=== PATIENT | female | born 1975 | race Caucasian/White ===

== ENCOUNTER 2016-06-18 16:04 | Emergency (ER) | payer SELFPAY ==
[~2016-06-18] VITALS: Ht 165.1 cm; Wt 105.0 kg
[~2016-06-18 16:04] MED LIST: IBUP600 PO; LORTA5 PO; OMEP20TA39 PO
[2016-06-18 16:06] VITALS: BP 168/72; PULSE 86; RESP 14; TEMP 97.9; O2SAT 99
--- NOTE | 2016-06-18 16:41 | PD ---
HPI Chief Complaint: Skin Problem Time Seen by Provider: 16:40 Travel History International Travel<30 days: No Contact w/Intl Traveler<30days: No Traveled to known affect area: No History of Present Illness HPI 40-year-old female presents the emergency department with erythema and swelling over the left dorsal foot after receiving a tattoo the area 2 days ago. Patient is up-to-date on her tetanus as of last October. Patient denies fever, chills, or other symptoms. She has no history of MRSA in the past. She is allergic to Toradol. Her pain is 6/10. PFSH Past Medical History Arthritis: No Asthma: No Anxiety: Yes Heart Rhythm Problems: No Cardiac Catheterization: No Cardiovascular Problems: No High Cholesterol: No Chest Pain: No Congestive Heart Failure: No COPD: No Cerebrovascular Accident: No Diabetes: No Diminished Hearing: No Deep Vein Thrombosis: Yes Endocrine: No Gastrointestinal Disorders: Yes (CELIAC DISEASE) GERD: Yes Glaucoma: No Genitourinary: No Headaches: No Hepatitis: Yes (HEP C) Hiatal Hernia: No Hypertension: No Kidney Stones: No Musculoskeletal: No Neurologic: No Reproductive: No Respiratory: No Immunizations Current: Yes Myocardial Infarction: No Renal Failure: No Seizures: No Sleep Apnea: No Thyroid Disease: No Ulcer: Yes ?: Not Menopausal: No : 2 Para: 2 Miscarriage: 0 Ovarian Cysts: Yes (RIGHT ) Tubal Ligation: Yes Past Surgical History AICD: No Cardiac Surgery: No Cholecystectomy: Yes Coronary Artery Bypass Graft: No Ear Surgery: Yes Endocrine Surgery: No Eye Surgery: No Genitourinary Surgery: Yes (COLONOSCOPY 1995) Gynecologic Surgery: Yes (TUBAL LIGATION) Hysterectomy: Yes Oral Surgery: No Pacemaker: No Thoracic Surgery: No Tympanostomy Tube: Yes Other Surgery: Yes (choleystestectomy) Social History Alcohol Use: Yes (SOCIALLY) Tobacco Use: No Substance Use: No Allergies-Medications (Allergen,Severity, Reaction): Coded Allergies: Toradol (Verified Adverse Reaction, Severe, DIAPHORETIC, N/V, 06/18/16) Reported Meds & Prescriptions Reported Meds & Active Scripts Active Review of Systems Except as stated in HPI: all other systems reviewed are Neg General / Constitutional: No: Fever Eyes: No: Visual changes HENT: No: Headaches Cardiovascular: No: Chest Pain or Discomfort Respiratory: No: Shortness of Breath Gastrointestinal: No: Abdominal Pain Genitourinary: No: Dysuria Musculoskeletal: Positive: Myalgias, No: Pain Skin: Positive Lesions (see history present illness.), No Rash Neurologic: No: Weakness Psychiatric: No: Depression Endocrine: No: Polydipsia Hematologic/Lymphatic: No: Easy Bruising Physical Exam Narrative GENERAL: Patient is in mild to moderate distress. SKIN: Warm and dry. Patient has normal color. Normal turgor. Patient has a new tattoo to the left dorsal lateral foot with some follow with her dragonfly. This area is mildly erythematous with swelling to the dorsal foot without significant signs of drainage, or lymphangitis. Left Toes are normal in appearance. The left ankle is normal in appearance. HEAD: Atraumatic. Normocephalic. EYES: Pupils equal and round. No scleral icterus. No injection or drainage. ENT: No nasal bleeding or discharge. Mucous membranes pink and moist. Pharynx is normal. NECK: Trachea midline. Supple nontender. CARDIOVASCULAR: Regular rate and rhythm. RESPIRATORY: No accessory muscle use. Clear to auscultation. Breath sounds equal bilaterally. MUSCULOSKELETAL: Extremities without clubbing, cyanosis, or edema. No obvious deformities. SEE SKIN NEUROLOGICAL: Awake and alert. No obvious cranial nerve deficits. Motor grossly within normal limits. Five out of 5 muscle strength in the arms and legs. Normal speech. PSYCHIATRIC: Appropriate mood and affect; insight and judgment normal. Data Data Last Documented VS Vital Signs Date Time Temp Pulse Resp B/P Pulse Ox O2 Delivery O2 Flow Rate FiO2 06/18/16 16:06 97.9 86 14 168/72 99 Room Air Orders Clindamycin Inj (Cleocin Inj) (06/18/16 16:45) [facility] Medical Decision Making Medical Screen Exam Complete: Yes Emergency Medical Condition: Yes Differential Diagnosis Cellulitis left foot. Infected tattoo. Early cellulitis. Possible MRSA. Narrative Course Patient is medically stable at time of exam. There is no real drainage to culture. Patient is given 600 mg clindamycin IM. Patient was discharged home on Bactrim DS twice a day 7 days. Patient is given topical Bactroban to be applied to the area twice daily after cleansing with water and soap. Patient is to keep the area elevated and take ibuprofen as needed for pain. Patient is given a note for work. Patient should follow with her primary care physician or return to emergency department worsening symptoms as needed. Diagnosis Primary Impression: Cellulitis of left foot excluding toes Referrals: Primary Care Physician Patient Instructions: Cellulitis (ED), General Instructions Departure Forms: Work Release Enter return to work date: Jun 20, 2016 Additional Instructions: Patient is given 600 mg clindamycin IM. Patient was discharged home on Bactrim DS twice a day 7 days. Patient is given topical Bactroban to be applied to the area twice daily after cleansing with water and soap. Patient is to keep the area elevated and take ibuprofen as needed for pain. Patient is given a note for work. Patient should follow with her primary care physician or return to emergency department worsening symptoms as needed. Med/Other Pt SpecificInfo: Prescription(s) given Disposition: DISCHARGE HOME Condition: Stable Rodney Dlaey Jun 18, 2016 16:41
[2016-06-18] MEDS ORDERED: CLINDAMYCIN PHOS 600 MG/4 ML VIAL IM ONE (16:45)
[2016-06-18] MEDS ORDERED: BACT800T5 PO (17:04)
[2016-06-18] MEDS ORDERED: MUPI2%T TOPICAL (17:04)
== END 2016-06-18 17:29 | disposition home or self-care (01) ==
LOC: NEPB 16:04
DX: L03.116 Cellulitis of left lower limb (principal)
CPT/HCPCS: 96372

== ENCOUNTER 2016-11-29 21:50 | Emergency (ER) | payer OTHER ==
[~2016-11-29] VITALS: Ht 165.1 cm; Wt 111.7 kg
[~2016-11-29 21:50] MED LIST changes: +BACT800T5 PO; -IBUP600 PO; -LORTA5 PO; +MUPI2%T TOPICAL; -OMEP20TA39 PO
[2016-11-29 21:55] VITALS: BP 141/90; PULSE 79; RESP 20; TEMP 98.2; O2SAT 100
[2016-11-29] MEDS ORDERED: MORPHINE SULFATE 4 MG/ML INJ IV PUSH ONE (22:15)
[2016-11-29] MEDS ORDERED: ONDANSETRON HCL 4 MG/2 ML VIAL IVP ONE (22:15)
--- NOTE | 2016-11-29 22:24 | PD ---
HPI Chief Complaint: Abdominal Pain Time Seen by Provider: 22:03 Travel History International Travel<30 days: No Contact w/Intl Traveler<30days: No Traveled to known affect area: No History of Present Illness HPI 41-year-old female complains of low abdominal pain and vaginal bleeding. Patient has history of enlarged uterus. Patient states that she has recurrent low abdominal pain with irregular vaginal bleeding. Patient status post hysterectomy in [place] [address] Garber. Patient states that she has intermittent abdominal pain and vaginal bleeding since then even after surgery. Patient states that the pain is worse for the past 3 days. Patient states that she has intermittent nausea vomiting with the pain. Patient states that the pain in cramping pain and sharp pain localized to lower abdomen. She denies any pain radiation. Patient denies any fever chills. Patient denies any dysuria or frequency. Patient denies any back pain. Patient was seen by personal physician and awaiting appointment with another certified midwife. On a scale of 1-10 the pain is a 9. Patient status post cholecystectomy also. PFSH Past Medical History Arthritis: No Asthma: No Anxiety: Yes Heart Rhythm Problems: No Cardiac Catheterization: No Cardiovascular Problems: No High Cholesterol: No Chest Pain: No Congestive Heart Failure: No COPD: No Cerebrovascular Accident: No Diabetes: No Diminished Hearing: No Deep Vein Thrombosis: Yes Endocrine: No Gastrointestinal Disorders: Yes (CELIAC DISEASE) GERD: Yes Glaucoma: No Genitourinary: No Headaches: No Hepatitis: Yes (HEP C) Hiatal Hernia: No Hypertension: No Kidney Stones: No Musculoskeletal: No Neurologic: No Reproductive: No Respiratory: No Immunizations Current: Yes Myocardial Infarction: No Renal Failure: No Seizures: No Sleep Apnea: No Thyroid Disease: No Ulcer: Yes ?: Not Menopausal: No : 2 Para: 2 Miscarriage: 0 Ovarian Cysts: Yes (RIGHT ) Tubal Ligation: Yes Past Surgical History AICD: No Cardiac Surgery: No Cholecystectomy: Yes Coronary Artery Bypass Graft: No Ear Surgery: Yes Endocrine Surgery: No Eye Surgery: No Genitourinary Surgery: Yes (COLONOSCOPY 1995) Gynecologic Surgery: Yes (TUBAL LIGATION) Hysterectomy: Yes (PARTIAL) Oral Surgery: No Pacemaker: No Thoracic Surgery: No Tympanostomy Tube: Yes Other Surgery: Yes (choleystestectomy) Social History Alcohol Use: Yes (SOCIALLY) Tobacco Use: No Substance Use: No Allergies-Medications (Allergen,Severity, Reaction): Coded Allergies: Toradol (Verified Adverse Reaction, Severe, DIAPHORETIC, N/V, 11/29/16) Reported Meds & Prescriptions Reported Meds & Active Scripts Active Reported Omeprazole 40 Mg Cap 80 Mg PO BID Methimazole 10 Mg Tab 10 Mg PO TID Metoprolol Tartrate 25 Mg Tab 12.5 Mg PO BID Review of Systems General / Constitutional: No: Fever Eyes: No: Visual changes HENT: No: Headaches Cardiovascular: No: Chest Pain or Discomfort Respiratory: No: Shortness of Breath Gastrointestinal: Positive: Nausea, Vomiting, Abdominal Pain Genitourinary: No: Dysuria Musculoskeletal: No: Pain Skin: No Rash Neurologic: No: Weakness Psychiatric: No: Depression Endocrine: No: Polydipsia Hematologic/Lymphatic: No: Easy Bruising Physical Exam Narrative GENERAL: Well-nourished, well-developed patient. SKIN: Focused skin assessment warm/dry. HEAD: Normocephalic. EYES: No scleral icterus. No injection or drainage. NECK: Supple, trachea midline. No JVD or lymphadenopathy. CARDIOVASCULAR: Regular rate and rhythm without murmurs, gallops, or rubs. RESPIRATORY: Breath sounds equal bilaterally. No accessory muscle use. GASTROINTESTINAL: Abdomen soft, nondistended. Patient has mild to moderate tenderness on palpation lower abdomen. No rebound tenderness. No mass. MUSCULOSKELETAL: No cyanosis, or edema. BACK: Nontender without obvious deformity. No CVA tenderness. DIRECTOR OF CODING exam: The cervix is present. Patient has a small amount a whitish discharge in the vaginal vault. Mild to moderate tenderness on palpation right adnexal area. No adnexal mass. Data Data Last Documented VS Vital Signs Date Time Temp Pulse Resp B/P Pulse Ox O2 Delivery O2 Flow Rate FiO2 11/29/16 21:55 98.2 79 20 141/90 100 Orders Complete Blood Count With Diff (11/29/16 22:12) Comprehensive Metabolic Panel (11/29/16 22:12) Prothrombin Time / Inr (Pt) (11/29/16 22:12) Act Partial Throm Time (Ptt) (11/29/16 22:12) Urinalysis - C+S If Indicated (11/29/16 22:12) Iv Access Insert/Monitor (11/29/16 22:12) Ecg Monitoring (11/29/16 22:12) Oximetry (11/29/16 22:12) Morphine Inj (Morphine Inj) (11/29/16 22:15) Ondansetron Inj (Zofran Inj) (11/29/16 22:15) Ct Abd/Pel W/O Iv Contrast (11/29/16 22:55) Urine Culture (11/29/16 22:35) Gc And Chlamydia Pcr (11/29/16 23:19) Wet Prep Profile (11/29/16 23:19) Morphine Inj (Morphine Inj) (11/29/16 23:30) Ondansetron Odt (Zofran Odt) (11/29/16 23:30) Labs Laboratory Tests Test 11/29/16 11/29/16 22:35 22:54 Urine Color YELLOW Urine Turbidity CLEAR Urine pH 5.5 Urine Specific Duck 1.018 Urine Protein NEG mg/dL Urine Glucose (UA) NEG mg/dL Urine Ketones NEG mg/dL Urine Occult Blood NEG Urine Nitrite NEG Urine Bilirubin NEG Urine Leukocyte Esterase NEG Urine RBC 0-3 /hpf Urine WBC 0-2 /hpf Urine Squamous Epithelial 0-5 /hpf Cells Urine Bacteria MOD /hpf Urine Mucus OCC /lpf Microscopic Urinalysis Comment CULTURE INDICATED Sodium Level 139 MEQ/L Potassium Level 3.6 MEQ/L Chloride Level 106 MEQ/L Carbon Dioxide Level 24.8 MEQ/L Anion Gap 8 MEQ/L Blood Urea Nitrogen 11 MG/DL Creatinine 0.65 MG/DL Estimat Glomerular Filtration 101 ML/MIN Rate Random Glucose 123 MG/DL Calcium Level 8.7 MG/DL Total Bilirubin 0.2 MG/DL Aspartate Amino Transf 24 U/L (AST/SGOT) Alanine Aminotransferase 28 U/L (ALT/SGPT) Alkaline Phosphatase 127 U/L Total Protein 7.5 GM/DL Albumin 3.4 GM/DL White Blood Count 8.1 TH/MM3 Red Blood Count 4.42 MIL/MM3 Hemoglobin 10.6 GM/DL Hematocrit 32.9 % Mean Corpuscular Volume 74.5 FL Mean Corpuscular Hemoglobin 24.0 PG Mean Corpuscular Hemoglobin 32.2 % Concent Red Cell Distribution Width 15.4 % Platelet Count 258 TH/MM3 Mean Platelet Volume 9.1 FL Neutrophils (%) (Auto) 53.1 % Lymphocytes (%) (Auto) 34.3 % Monocytes (%) (Auto) 8.8 % Eosinophils (%) (Auto) 2.0 % Basophils (%) (Auto) 1.8 % Neutrophils # (Auto) 4.3 TH/MM3 Lymphocytes # (Auto) 2.8 TH/MM3 Monocytes # (Auto) 0.7 TH/MM3 Eosinophils # (Auto) 0.2 TH/MM3 Basophils # (Auto) 0.1 TH/MM3 CBC Comment AUTO DIFF Prothrombin Time 10.7 SEC Prothromb Time International 1.0 RATIO Ratio Activated Partial 25.9 SEC Thromboplast Time MDM Medical Decision Making Medical Screen Exam Complete: Yes Emergency Medical Condition: Yes Interpretation(s) Last Impressions Abdomen/Pelvis CT 11/29/16 2255 Signed Impressions: Service Date/Time: Tuesday, November 29, 2016 22:52 - CONCLUSION: No acute finding is identified within the abdomen or pelvis on this noncontrast examination. Al Alonso MD 23:49 PM. CBC with hemoglobin 10.6 hematocrit 32.9. MCV 74.5. WBC 8.1 with normal differential. CMP within normal limit. UA is negative. Differential Diagnosis Differential diagnosis including UTI, pyelonephritis, nephrolithiasis, ovarian cyst, ovarian torsion, colitis Narrative Course 41-year-old female with low abdominal pain. Patient status post hysterectomy. Patient reported intermittent vaginal bleeding and low abdominal pain since February 2016 after the surgery. Diagnosis Primary Impression: Abdominal pain Qualified Code: R10.30 - Lower abdominal pain Patient Instructions: General Instructions Additional Instructions: Tramadol as needed for pain. Follow-up with certified midwife and GI specialist if persistent problem. Return if worse. Med/Other Pt SpecificInfo: Prescription(s) given Scripts Tramadol (Ultram)50 Mg Tab50 Mg PO Q6H PRN (PAIN) #30 TAB Prov:Jude Avila MD 11/29/16 Disposition: 01 DISCHARGE HOME Condition: Stable Jude Avila MD Nov 29, 2016 22:24
[2016-11-29 22:42] VITALS: BP 129/70; PULSE 90; RESP 17; O2SAT 100
[2016-11-29 23:02] LABS: AUTOMATED NEUTROPHIL # 4.3 TH/MM3 (1.8-7.7); BASOPHIL # 0.1 TH/MM3 (0-0.2); BASOPHIL % 1.8 % (0.0-2.0); EOSINOPHIL # 0.2 TH/MM3 (0-0.4); HEMATOCRIT 32.9 % (35.0-46.0); LYMPH % 34.3 % (9.0-44.0); LYMPHOCYTE # 2.8 TH/MM3 (1.0-4.8); MEAN CELL VOLUME 74.5 FL (80.0-100.0); MEAN CORPUSCULAR HGB CONC 32.2 % (32.0-36.0); MONO % 8.8 % (0.0-8.0); NEUT % 53.1 % (16.0-70.0); PLATELET COUNT 258 TH/MM3 (150-450); RED BLOOD COUNT 4.42 MIL/MM3 (4.00-5.30); RED CELL DISTRIBUTION WIDTH 15.4 % (11.6-17.2); WHITE BLOOD COUNT 8.1 TH/MM3 (4.0-11.0)
[2016-11-29] MEDS ORDERED: METO25TA3 PO (23:02)
[2016-11-29] MEDS ORDERED: METHI10 PO (23:02)
[2016-11-29] MEDS ORDERED: OMEP40CA2 PO (23:02)
[2016-11-29 23:03] LABS: BLOOD, URINE NEG (NEG); GLUCOSE,URINE NEG (NEG); KETONE, URINE NEG (NEG); NITRITE,URINE NEG (NEG); PH, URINE 5.5 (5.0-8.5)
[2016-11-29 23:14] LABS: CHLORIDE 106 MEQ/L (98-107); POTASSIUM 3.6 MEQ/L (3.5-5.1); SODIUM (NA) 139 MEQ/L (136-145)
[2016-11-29 23:15] LABS: URINE COLOR YELLOW (YELLW/STRAW)
[2016-11-29 23:16] LABS: MUCUS URINE OCC /lpf (OCC); SQUAMOUS EPITHELIAL CELL URINE 0-5 /hpf (0-5)
[2016-11-29 23:17] LABS: BACTERIA, URINE MOD /hpf; RBC, URINE 0-3 /hpf (0-3); WBC, URINE 0-2 /hpf (0-5)
[2016-11-29 23:18] LABS: ANION GAP 8 MEQ/L (5-15); BICARBONATE 24.8 MEQ/L (21.0-32.0); COMMENT (UR) CULTURE INDICATED; CULTURE IF INDICATED CULTURE INDICATED
[2016-11-29 23:19] LABS: BLOOD UREA NITROGEN 11 MG/DL (7-18)
[2016-11-29 23:20] LABS: APTT (PATIENT) 25.9 SEC (24.3-30.1); PROTHROMBIN TIME - PATIENT 10.7 SEC (9.8-11.6)
[2016-11-29 23:21] LABS: ALT (GPT) 28 U/L (10-53)
[2016-11-29 23:22] LABS: AST (GOT) 24 U/L (15-37); GLOMERULAR FILTRATION RATE 101 ML/MIN (>89)
[2016-11-29 23:23] LABS: TOTAL BILIRUBIN ADULT 0.2 MG/DL (0.2-1.0)
[2016-11-29 23:24] LABS: ALKALINE PHOSPHATASE 127 U/L (45-117)
--- NOTE | 2016-11-29 23:27 | RADRPT ---
EXAM DATE/TIME: 11/29/2016 22:52 [facility] COMPARISON: CT PULMONARY ANGIOGRAM, September 08, 2015, 20:34. INDICATIONS : Lower abdominal pain post hysterectomy in February 2016. Cramping for three days. ORAL CONTRAST: No oral contrast ingested. RADIATION DOSE: 22.26 CTDIvol (mGy) ; Patient body habitus MEDICAL HISTORY : Gastroesophageal reflux disease. Deep venous thrombosis. Celiac disease. SURGICAL HISTORY : Cholecystectomy. Hysterectomy. ENCOUNTER: Initial ACUITY: 7 - 11 months PAIN SCALE: 9/10 LOCATION: Bilateral lower quadrant TECHNIQUE: Volumetric scanning of the abdomen and pelvis was performed. Using automated exposure control and ad justment of the mA and/or kV according to patient size, radiation dose was kept as low as reasonably achievable to obtain optimal diagnostic quality images. DICOM format image data is available electro nically for review and comparison. FINDINGS: LOWER LUNGS: There is a subpleural 4 mm noncalcified pulmonary nodule in the right lower lobe. This nodule has bee n stable since September 2015, diagnostic of a benign process. Otherwise, the visualized lower lungs are cl ear. LIVER: Homogeneous density without lesion. There is no dilation of the biliary tree. There is been prior c holecystectomy clips in the gallbladder fossa. SPLEEN: Normal size without lesion. PANCREAS: Within normal limits. KIDNEYS: Normal in size and shape. There is no mass, stone, or hydronephrosis. ADRENAL GLANDS: Within normal limits. VASCULAR: There is no aortic aneurysm. BOWEL/MESENTERY: The stomach, small bowel, and colon demonstrate no acute abnormality. There is no free intraperitone al air or fluid. ABDOMINAL WALL: Within normal limits. RETROPERITONEUM: There is no lymphadenopathy. BLADDER: No wall thickening or mass. REPRODUCTIVE: No abnormality is identified. INGUINAL: There is no lymphadenopathy or hernia. MUSCULOSKELETAL: No acute finding is identified. CONCLUSION: No acute finding is identified within the abdomen or pelvis on this noncontrast examination. Al Alonso MD on November 29, 2016 at 23:23 Board Certified Radiologist. This report was verified electronically.
[2016-11-29] MEDS ORDERED: MORPHINE SULFATE 4 MG/ML INJ IM ONE (23:30)
[2016-11-29] MEDS ORDERED: ONDANSETRON ODT 4 MG TAB PO ONE (23:30)
[2016-11-29 23:32] LABS: HEMO FLAGS AUTO DIFF
[2016-11-29 23:48] VITALS: BP 102/60; PULSE 65; RESP 18; O2SAT 100
[2016-11-29 23:52] LABS: PLATELET ESTIMATE SMEAR NORMAL (NORMAL); PLATELET MORPHOLOGY NORMAL (NORMAL); SCAN/DIFF AUTO DIFF CONFIRMED
[2016-11-29] MEDS ORDERED: ULTR50TA5 PO (23:54)
[2016-11-30 07:44] LABS: CHLAMYDIA PCR NOT DETECTED (NOT DETECT); NEISSERIA PCR NOT DETECTED (NOT DETECT)
== END 2016-11-30 00:24 | disposition home or self-care (01) ==
LOC: PHED 21:50
DX: R10.30 Lower abdominal pain, unspecified (principal); N93.9 Abnormal uterine and vaginal bleeding, unspecified; R11.2 Nausea with vomiting, unspecified; Z86.59 Personal history of other mental and behavioral disorders; Z86.718 Personal history of other venous thrombosis and embolism; Z87.19 Personal history of other diseases of the digestive system
CPT/HCPCS: 74176; 80053; 81001; 85025; 85610; 85730; 87086; 87210; 87491; 87591; 96372; 99285; J2270

== ENCOUNTER 2017-03-08 12:26 | Emergency (ER) | payer OTHER ==
[~2017-03-08] VITALS: Ht 165.1 cm; Wt 110.0 kg
[~2017-03-08 12:26] MED LIST changes: +ALBUAER3 INH; -BACT800T5 PO; +BENZ100 PO; +METO25TA3 PO; -MUPI2%T TOPICAL; +OMEP40CA2 PO; +PRED20 PO; +ZITH500T PO
[2017-03-08 12:29] VITALS: BP 141/98; PULSE 18; PULSE 86; RESP 18; TEMP 97.9; O2SAT 100
--- NOTE | 2017-03-08 12:37 | PD ---
Physical Exam Date Seen by Provider: Mar 08, 2017 Time Seen by Provider: 12:34 Narrative 41-year-old white female presents to emergency Department with complaints of nausea, vomiting and abdominal pain. Symptoms have been present since this morning. He is symptoms are worse with movement. Associated nausea, vomiting and diarrhea. No fever or chills. No urinary symptoms. No vaginal complaints. Patient reports her pain at 10/10. Sharp and cramping. Vital signs reviewed. Pt. waiting for bed placement. Data Data Last Documented VS Vital Signs Date Time Temp Pulse Resp B/P (MAP) Pulse Ox O2 Delivery O2 Flow Rate FiO2 03/08/17 12:29 97.9 86 18 141/98 (112) 100 Room Air [facility] Medical Record Reviewed: No Supervised Visit with COTY: Rolo Chowdary Mar 08, 2017 12:37
[2017-03-08] MEDS ORDERED: SODIUM CHLOR 0.9% 1000 ML INJ 1,000 ML IV SCH (12:51)
--- NOTE | 2017-03-08 12:56 | PD ---
HPI Chief Complaint: Abdominal Pain Time Seen by Provider: 12:45 Travel History International Travel<30 days: No Contact w/Intl Traveler<30days: No Traveled to known affect area: No History of Present Illness HPI This patient was examined in the presence of a female nurse. 41-year-old female presents for evaluation of abdominal pain. She reports over the past 3 days she has had 3 episodes daily of loose stools. She reports some nausea and vomiting since yesterday evening. This morning she developed some abdominal pain. She describes as a sharp pain in the periumbilical several radiates into the lower quadrants of the abdomen. The pain is constant but worse with movement. She denies fevers or chills. She does endorse some pain in the right lower quadrant when she urinates. She denies vaginal bleeding or discharge, fevers or chills, flank pain, chest pain or shortness of breath. She reports a history of partial hysterectomy as well as cholecystectomy. She also reports a history of hepatitis C, celiac disease and Graves' disease. Her primary care physician is Dr. Kennedy. No other complaints. PFSH Past Medical History Arthritis: No Asthma: No Anxiety: Yes Heart Rhythm Problems: No Cardiac Catheterization: No Cardiovascular Problems: No High Cholesterol: No Chest Pain: No Congestive Heart Failure: No COPD: No Cerebrovascular Accident: No Diabetes: No Diminished Hearing: No Deep Vein Thrombosis: Yes Endocrine: No Gastrointestinal Disorders: Yes (CELIAC DISEASE) GERD: Yes Glaucoma: No Genitourinary: No Headaches: No Hepatitis: Yes (HEP C) Hiatal Hernia: No Hypertension: No Kidney Stones: No Musculoskeletal: No Neurologic: No Reproductive: No Respiratory: No Immunizations Current: Yes Myocardial Infarction: No Renal Failure: No Seizures: No Sleep Apnea: No Thyroid Disease: Yes (Hyperthyroid) Ulcer: Yes Tetanus Vaccination: < 5 Years Influenza Vaccination: Yes ?: Not Menopausal: No : 2 Para: 2 Miscarriage: 0 Ovarian Cysts: Yes (RIGHT ) Tubal Ligation: Yes Past Surgical History AICD: No Cardiac Surgery: No Cholecystectomy: Yes Coronary Artery Bypass Graft: No Ear Surgery: Yes Endocrine Surgery: No Eye Surgery: No Genitourinary Surgery: Yes (COLONOSCOPY 1995) Gynecologic Surgery: Yes (TUBAL LIGATION) Hysterectomy: Yes (partial) Oral Surgery: No Pacemaker: No Thoracic Surgery: No Tympanostomy Tube: Yes Other Surgery: Yes (choleystestectomy) Family History Family Myocardial Infarction: Yes (GRANDMOTHER IN HER 50S) Social History Alcohol Use: Yes (SOCIALLY) Tobacco Use: No Substance Use: No Allergies-Medications (Allergen,Severity, Reaction): Coded Allergies: ketorolac (Verified Adverse Reaction, Severe, DIAPHORETIC, N/V, 03/08/17) Reported Meds & Prescriptions Reported Meds & Active Scripts Active Zofran (Ondansetron HCl) 4 Mg Tab 4 Mg PO Q6HR PRN Bentyl (Dicyclomine HCl) 10 Mg Cap 10 Mg PO TID Proair Hfa 8.5 GM Inh (Albuterol Sulfate) 90 Mcg/Act Aer 2 Puff INH Q4-6H PRN 108 mcg/actuation Reported Omeprazole 40 Mg Cap 80 Mg PO BID Metoprolol Tartrate 25 Mg Tab 12.5 Mg PO BID Review of Systems Except as stated in HPI: all other systems reviewed are Neg Physical Exam Narrative GENERAL: Well-developed well-nourished female who appears uncomfortable on initial examination SKIN: Warm and dry. HEAD: Atraumatic. Normocephalic. EYES: Pupils equal and round. No scleral icterus. No injection or drainage. ENT: No nasal bleeding or discharge. Mucous membranes pink and moist. NECK: Trachea midline. No JVD. CARDIOVASCULAR: Regular rate and rhythm. No murmur appreciated. RESPIRATORY: No accessory muscle use. Clear to auscultation. Breath sounds equal bilaterally. GASTROINTESTINAL: Abdomen soft, generalized tenderness to palpation in the lower quadrants without guarding. There is no CVA tenderness. MUSCULOSKELETAL: No obvious deformities. No clubbing. No cyanosis. No edema. NEUROLOGICAL: Awake and alert. No obvious cranial nerve deficits. Motor grossly within normal limits. Normal speech. PSYCHIATRIC: Appropriate mood and affect; insight and judgment normal. Data Data Last Documented VS Vital Signs Date Time Temp Pulse Resp B/P (MAP) Pulse Ox O2 Delivery O2 Flow Rate FiO2 03/08/17 15:22 86 18 108/69 (82) 100 Room Air 03/08/17 12:29 97.9 Orders Orders Complete Blood Count With Diff (03/08/17 12:51) Comprehensive Metabolic Panel (03/08/17 12:51) Lipase (03/08/17 12:51) Prothrombin Time / Inr (Pt) (03/08/17 12:51) Act Partial Throm Time (Ptt) (03/08/17 12:51) Urinalysis - C+S If Indicated (03/08/17 12:51) Ct Abd/Pel W Iv Contrast(Rout) (03/08/17 12:51) Iv Access Insert/Monitor (03/08/17 12:51) Ecg Monitoring (03/08/17 12:51) Oximetry (03/08/17 12:51) Morphine Inj (Morphine Inj) (03/08/17 13:00) Ondansetron Inj (Zofran Inj) (03/08/17 13:00) Sodium Chlor 0.9% 1000 Ml Inj (Ns 1000 M (03/08/17 12:51) Sodium Chloride 0.9% Flush (Ns Flush) (03/08/17 13:00) Vascular Access Team Consult/P PRN (03/08/17 13:01) Vascular Poc Ultrasound (03/08/17 ) Morphine Inj (Morphine Inj) (03/08/17 14:15) Iohexol 350 Inj (Omnipaque 350 Inj) (03/08/17 14:23) Ed Discharge Order (03/08/17 15:48) Labs Laboratory Tests Test 03/08/17 13:10 03/08/17 13:30 Urine Color YELLOW Urine Turbidity CLEAR Urine pH 8.0 Urine Specific [place] 1.050 Urine Protein NEG mg/dL Urine Glucose (UA) NEG mg/dL Urine Ketones 10 mg/dL Urine Occult Blood NEG Urine Nitrite NEG Urine Bilirubin NEG Urine Urobilinogen LESS THAN 2.0 MG/DL Urine Leukocyte Esterase NEG Urine RBC 1 /hpf Urine WBC LESS THAN 1 /hpf Urine Squamous Epithelial Cells 3 /hpf Microscopic Urinalysis Comment CULT NOT INDICATED White Blood Count 7.1 TH/MM3 Red Blood Count 4.41 MIL/MM3 Hemoglobin 10.8 GM/DL Hematocrit 33.5 % Mean Corpuscular Volume 76.0 FL Mean Corpuscular Hemoglobin 24.5 PG Mean Corpuscular Hemoglobin Concent 32.2 % Red Cell Distribution Width 15.3 % Platelet Count 297 TH/MM3 Mean Platelet Volume 8.4 FL Neutrophils (%) (Auto) 59.5 % Lymphocytes (%) (Auto) 29.9 % Monocytes (%) (Auto) 7.9 % Eosinophils (%) (Auto) 2.1 % Basophils (%) (Auto) 0.6 % Neutrophils # (Auto) 4.2 TH/MM3 Lymphocytes # (Auto) 2.1 TH/MM3 Monocytes # (Auto) 0.6 TH/MM3 Eosinophils # (Auto) 0.1 TH/MM3 Basophils # (Auto) 0.0 TH/MM3 CBC Comment DIFF FINAL Differential Comment Prothrombin Time 11.0 SEC Prothromb Time International Ratio 1.0 RATIO Activated Partial Thromboplast Time 26.0 SEC Blood Urea Nitrogen 9 MG/DL Creatinine 0.58 MG/DL Random Glucose 90 MG/DL Total Protein 7.1 GM/DL Albumin 3.1 GM/DL Calcium Level 8.4 MG/DL Alkaline Phosphatase 91 U/L Aspartate Amino Transf (AST/SGOT) 19 U/L Alanine Aminotransferase (ALT/SGPT) 20 U/L Total Bilirubin 0.5 MG/DL Sodium Level 139 MEQ/L Potassium Level 3.6 MEQ/L Chloride Level 108 MEQ/L Carbon Dioxide Level 22.7 MEQ/L Anion Gap 8 MEQ/L Estimat Glomerular Filtration Rate 116 ML/MIN Lipase 149 U/L [facility] Medical Decision Making Medical Screen Exam Complete: Yes Emergency Medical Condition: Yes Medical Record Reviewed: Yes Interpretation(s) CBC CMP Lipase Urinalysis CT abdomen and pelvis CONCLUSION: 1. Normal appendix. 2. No acute CT abnormality in the abdomen or pelvis to explain patient's symptoms. 3. Stable 5 mm groundglass nodule in the peripheral right lower lobe no. No additional followup is recommended per 2017 Fleischner criteria. Differential Diagnosis Gastroenteritis, appendicitis, obstruction, colitis, diverticulitis, ovarian torsion Narrative Course The patient was placed on ECG monitoring pulse oximetry. She will be given IV fluids, morphine and Zofran. Plan is for lab work, urinalysis, CT abdomen and pelvis. The patient's laboratory imaging studies revealed no acute abnormalities. At this point in time the plan to be to discharge the patient with Zofran and Bentyl and have her follow-up with gastroenterology for more of an outpatient workup if symptoms persist. She is agreeable. Diagnosis Primary Impression: Abdominal pain Qualified Codes: R10.9 - Unspecified abdominal pain Additional Instructions: Medication as prescribed. Stay well hydrated well-nourished. Follow-up with primary care physician, erp business analyst. Return for any emergent medical conditions. Med/Other Pt SpecificInfo: Prescription(s) given Scripts Ondansetron (Zofran) 4 Mg Tab 4 MG PO Q6HR Y for NAUSEA OR VOMITING, #20 TAB 0 Refills Prov: Ishmael Quinonez MD 03/08/17 Dicyclomine (Bentyl) 10 Mg Cap 10 MG PO TID for Bowel Management, #20 CAP 0 Refills Prov: Ishmael Quinonez MD 03/08/17 Disposition: 01 DISCHARGE HOME Condition: Stable Jose Winters Mar 08, 2017 12:55
[2017-03-08] MEDS ORDERED: MORPHINE SULFATE 4 MG/ML INJ IV PUSH ONE (13:00)
[2017-03-08] MEDS ORDERED: SODIUM CHLORIDE 0.9% FLUSH 10 ML FLUSH IV FLUSH PRN (13:00)
[2017-03-08] MEDS ORDERED: ONDANSETRON HCL 4 MG/2 ML VIAL IVP ONE (13:00)
[2017-03-08 13:35] VITALS: BP 116/56; PULSE 70; RESP 20; O2SAT 100
[2017-03-08 13:54] LABS: AUTOMATED NEUTROPHIL # 4.2 TH/MM3 (1.8-7.7); BASOPHIL % 0.6 % (0.0-2.0); EOSINOPHIL # 0.1 TH/MM3 (0-0.4); EOSINOPHIL % 2.1 % (0.0-4.0); HEMATOCRIT 33.5 % (35.0-46.0); HEMO FLAGS DIFF FINAL; LYMPH % 29.9 % (9.0-44.0); LYMPHOCYTE # 2.1 TH/MM3 (1.0-4.8); MEAN CORPUSCULAR HEMOGLOBIN 24.5 PG (27.0-34.0); MEAN CORPUSCULAR HGB CONC 32.2 % (32.0-36.0); MONO % 7.9 % (0.0-8.0); NEUT % 59.5 % (16.0-70.0); PLATELET COUNT 297 TH/MM3 (150-450); RED BLOOD COUNT 4.41 MIL/MM3 (4.00-5.30); RED CELL DISTRIBUTION WIDTH 15.3 % (11.6-17.2); WHITE BLOOD COUNT 7.1 TH/MM3 (4.0-11.0)
[2017-03-08 14:08] LABS: ALT (GPT) 20 U/L (10-53); ANION GAP 8 MEQ/L (5-15); AST (GOT) 19 U/L (15-37); BICARBONATE 22.7 MEQ/L (21.0-32.0); BLOOD UREA NITROGEN 9 MG/DL (7-18); CHLORIDE 108 MEQ/L (98-107); GLOMERULAR FILTRATION RATE 116 ML/MIN (>89); POTASSIUM 3.6 MEQ/L (3.5-5.1); SODIUM (NA) 139 MEQ/L (136-145)
[2017-03-08 14:10] LABS: ALKALINE PHOSPHATASE 91 U/L (45-117); TOTAL BILIRUBIN ADULT 0.5 MG/DL (0.2-1.0)
[2017-03-08] MEDS ORDERED: MORPHINE SULFATE 2 MG/ML INJ IV PUSH ONE (14:15)
[2017-03-08] MEDS ORDERED: IOHEXOL 350 MG/ML 10 ML VIAL (for RAD DIAG) IVCONTRAST ONE (14:23)
[2017-03-08 15:22] VITALS: BP 108/69; PULSE 86; RESP 18; O2SAT 100
[2017-03-08 15:29] LABS: BLOOD, URINE NEG (NEG); GLUCOSE,URINE NEG (NEG); KETONE, URINE 10 mg/dL (NEG); NITRITE,URINE NEG (NEG); SQUAMOUS EPITHELIAL CELL URINE 3 /hpf (0-5); URINE COLOR YELLOW (YELLW/STRAW)
[2017-03-08 15:30] LABS: COMMENT (UR) CULT NOT INDICATED; CULTURE IF INDICATED CULT NOT INDICATED
--- NOTE | 2017-03-08 15:33 | RADRPT ---
EXAM DATE/TIME: 03/08/2017 14:20 [facility] COMPARISON: CT ABDOMEN & PELVIS W CONTRAST, December 28, 2012, 0:46. CT ABDOMEN & PELVIS W/O CONTRAST, November 29 17, 22:52. INDICATIONS : Right sided and mid lower abdominal pain since 5am. IV CONTRAST: 93 cc Omnipaque 350 (iohexol) IV ORAL CONTRAST: No oral contrast ingested. RADIATION DOSE: 16.82 CTDIvol (mGy) MEDICAL HISTORY : Ulcers. SURGICAL HISTORY : Cholecystectomy. Tubal ligation.Hysterectomy. ENCOUNTER: Initial ACUITY: 1 day PAIN SCALE: 6/10 LOCATION: Right abdomen TECHNIQUE: Volumetric scanning of the abdomen and pelvis was performed. Using automated exposure control and ad justment of the mA and/or kV according to patient size, radiation dose was kept as low as reasonably achievable to obtain optimal diagnostic quality images. DICOM format image data is available electro nically for review and comparison. FINDINGS: LOWER LUNGS: 5 mm sub-solid nodule in the posterior right lower lobe. This has been stable since 2013 exam. LIVER: Homogeneous density without lesion. There is no dilation of the biliary tree. Gallbladder is surgica lly absent. SPLEEN: Normal size without lesion. PANCREAS: Within normal limits. KIDNEYS: Normal in size and shape. There is no mass, stone or hydronephrosis. ADRENAL GLANDS: Within normal limits. VASCULAR: There is no aortic aneurysm. BOWEL/MESENTERY: The stomach, small bowel, and colon demonstrate no acute abnormality. Appendix is visualized and nor mal in appearance. There is no free intraperitoneal air or fluid. ABDOMINAL WALL: Within normal limits. RETROPERITONEUM: Unremarkable. BLADDER: No wall thickening or mass. REPRODUCTIVE: Within normal limits. INGUINAL: There is no lymphadenopathy or hernia. MUSCULOSKELETAL: Within normal limits for patient age. CONCLUSION: 1. Normal appendix. 2. No acute CT abnormality in the abdomen or pelvis to explain patient's symptoms. 3. Stable 5 mm groundglass nodule in the peripheral right lower lobe no. No additional followup is re commended per 2017 Fleischner criteria. Dillon Melgar MD on March 08, 2017 at 15:17 Board Certified Radiologist. This report was verified electronically.
[2017-03-08] MEDS ORDERED: ZOFR4TAB PO (15:48)
[2017-03-08] MEDS ORDERED: DICY10 PO (15:48)
== END 2017-03-08 16:30 | disposition home or self-care (01) ==
LOC: NEPC 12:26
DX: R10.33 Periumbilical pain (principal); R11.2 Nausea with vomiting, unspecified; B19.20 Unspecified viral hepatitis C without hepatic coma; K90.0 Celiac disease; E05.00 Thyrotoxicosis with diffuse goiter without thyrotoxic crisis or storm; F41.9 Anxiety disorder, unspecified; K21.9 Gastro-esophageal reflux disease without esophagitis; E05.90 Thyrotoxicosis, unspecified without thyrotoxic crisis or storm; Z86.718 Personal history of other venous thrombosis and embolism
CPT/HCPCS: 74177; 80053; 81001; 83690; 85025; 85610; 85730; 96361; 96374; 96375; 96376; 99285; J2270; J2405; J7030; Q9967

== ENCOUNTER 2017-10-04 19:13 | Emergency (ER) | payer OTHER ==
[~2017-10-04] VITALS: Ht 165.1 cm; Wt 119.0 kg
[~2017-10-04 19:13] MED LIST changes: -BENZ100 PO; +DICY10 PO; +HYDR-3580 PO; -PRED20 PO; -ZITH500T PO; +ZOFR4TAB PO
[2017-10-04 19:17] VITALS: BP 147/90; PULSE 66; RESP 18; TEMP 97.9; O2SAT 100
[2017-10-04] MEDS ORDERED: NABU1TAB37 PO (19:50)
--- NOTE | 2017-10-04 19:54 | PD ---
HPI . Ear pain Chief Complaint: ENT Complaint Time Seen by Provider: 19:45 Travel History International Travel<30 days: No Contact w/Intl Traveler<30days: No Traveled to known affect area: No History of Present Illness HPI Patient presents with chief complaint of left ear pain. Onset 1 week ago. Getting progressively worse. Currently rated 8/10. Unrelieved by Tylenol and Advil. Pain radiates to the head and neck on the left-hand side. PFSH Past Medical History Arthritis: No Asthma: No Anxiety: Yes Heart Rhythm Problems: No Cardiac Catheterization: No Cardiovascular Problems: No High Cholesterol: No Chest Pain: No Congestive Heart Failure: No COPD: No Cerebrovascular Accident: No Diabetes: No Diminished Hearing: No Deep Vein Thrombosis: Yes Endocrine: No Gastrointestinal Disorders: Yes (CELIAC DISEASE) GERD: Yes Glaucoma: No Genitourinary: No Headaches: No Hepatitis: Yes (HEP C) Hiatal Hernia: No Hypertension: Yes Kidney Stones: No Musculoskeletal: No Neurologic: No Reproductive: No Respiratory: No Immunizations Current: Yes Myocardial Infarction: No Renal Failure: No Seizures: No Sleep Apnea: No Thyroid Disease: Yes (Hyperthyroid) Ulcer: Yes Tetanus Vaccination: < 5 Years Influenza Vaccination: Yes ?: Not LMP: 09/04/17 Menopausal: No : 2 Para: 2 Miscarriage: 0 Ovarian Cysts: Yes (RIGHT ) Tubal Ligation: Yes Past Surgical History AICD: No Cardiac Surgery: No Cholecystectomy: Yes Coronary Artery Bypass Graft: No Ear Surgery: Yes Endocrine Surgery: No Eye Surgery: No Genitourinary Surgery: Yes (COLONOSCOPY 1995) Gynecologic Surgery: Yes (TUBAL LIGATION) Hysterectomy: Yes (partial) Oral Surgery: No Pacemaker: No Thoracic Surgery: No Tympanostomy Tube: Yes Other Surgery: Yes (choleystestectomy) Family History Family Myocardial Infarction: Yes (GRANDMOTHER IN HER 50S) Social History Alcohol Use: Yes (SOCIALLY) Tobacco Use: No Substance Use: No Allergies-Medications (Allergen,Severity, Reaction): Coded Allergies: ketorolac (Verified Adverse Reaction, Severe, DIAPHORETIC, N/V, 10/04/17) Reported Meds & Prescriptions Reported Meds & Active Scripts Active Nabumetone 500 Mg Tab 500 Mg PO BID Reported Omeprazole 40 Mg Cap 80 Mg PO BID Metoprolol Tartrate 25 Mg Tab 12.5 Mg PO BID Review of Systems Except as stated in HPI: all other systems reviewed are Neg Physical Exam Narrative GENERAL: Awake and alert and in no acute distress. SKIN: Warm and dry. HEAD: Normocephalic/atraumatic. EYES: Pupils are equal. Extraocular movements are intact. ENT: TMs are shiny lazar with good light reflexes bilaterally. There is no swelling of the auricle and no pain on movement of the auricle or compression of the tragus. She does have tenderness to palpation of the left TMJ and the pain is exacerbated by opening and closing her mouth. NECK: Normal range of motion. No cervical lymphadenopathy. CARDIOVASCULAR: Regular rate and rhythm. RESPIRATORY: Nonlabored respirations. MUSCULOSKELETAL: Atraumatic. NEUROLOGICAL: Nonfocal. PSYCHIATRIC: Appropriate mood and affect. Data Data Last Documented VS Vital Signs Date Time Temp Pulse Resp B/P (MAP) Pulse Ox O2 Delivery O2 Flow Rate FiO2 10/04/17 19:17 97.9 66 18 147/90 (109) 100 Orders Orders Ed Discharge Order (10/04/17 19:51) MDM Medical Decision Making Medical Screen Exam Complete: Yes Emergency Medical Condition: Yes Differential Diagnosis Differential diagnosis of ear pain includes eustachian tube dysfunction, otitis externa, otitis media, TMJ syndrome Narrative Course This patient presents with a one-week history of left ear pain. She has TMJ syndrome based upon physical exam. She will be discharged home with a prescription for Relafen. Follow-up with a dentist if symptoms persist. Diagnosis Primary Impression: TMJ arthralgia Qualified Codes: M26.622 - Arthralgia of left temporomandibular joint Patient Instructions: General Instructions, Temporomandibular Disorder (ED) Departure Forms: Tests/Procedures Additional Instructions: Follow-up with a dentist if your symptoms persist. Scripts Nabumetone (Nabumetone) 500 Mg Tab 500 MG PO BID for Pain-Inflammation, #60 TAB 0 Refills Prov: Haritha Smallwood MD 10/04/17 Disposition: 01 DISCHARGE HOME Condition: Stable Haritha Smallwood MD October 04, 2017 19:54
== END 2017-10-04 20:02 | disposition home or self-care (01) ==
LOC: PHEFT 19:13
DX: M26.622 Arthralgia of left temporomandibular joint (principal); F41.9 Anxiety disorder, unspecified; K90.0 Celiac disease; K21.9 Gastro-esophageal reflux disease without esophagitis; B19.20 Unspecified viral hepatitis C without hepatic coma; I10 Essential (primary) hypertension; E05.90 Thyrotoxicosis, unspecified without thyrotoxic crisis or storm; Z86.718 Personal history of other venous thrombosis and embolism
CPT/HCPCS: 99283